=== PATIENT | male | born 1985 | race Caucasian/White ===

== ENCOUNTER 2023-05-08 11:20 | Emergency (ER) | payer OTHER ==
[~2023-05-08] VITALS: Ht 175.3 cm; Wt 84.5 kg
[2023-05-08] MEDS ORDERED: TETANUS-DIPTH-ACEL PERTUSSIS 0.5ML SYR Tdap IM ONE (11:45)
[2023-05-08 13:36] VITALS: BP 121/74; PULSE 80; RESP 16; TEMP 97.7; O2SAT 100
== END 2023-05-08 13:40 | disposition home or self-care (01) ==
LOC: EEVIPCON 11:20 → ER 11:20
DX: S50.02XA Contusion of left elbow, initial encounter (principal); S50.01XA Contusion of right elbow, initial encounter; S60.211A Contusion of right wrist, initial encounter; S60.212A Contusion of left wrist, initial encounter; S00.81XA Abrasion of other part of head, initial encounter; R51.9 Headache, unspecified; Y04.2XXA Assault by strike against or bumped into by another person, initial encounter; Y93.89 Activity, other specified; Y92.89 Other specified places as the place of occurrence of the external cause; Y99.8 Other external cause status
CPT/HCPCS: 70450; 70486; 73080; 73100; 90471; 90715